=== PATIENT | female | born 1950 | race Caucasian/White ===

== ENCOUNTER 2023-03-29 07:35 | Outpatient (CLI) | payer OTHER | END 2023-03-29 08:11 | disposition home or self-care (01) | LOC: TOM 07:35 | PROVIDERS: ATTEND Surgery | DX: R19.4 Change in bowel habit (principal); R10.84 Generalized abdominal pain; R14.0 Abdominal distension (gaseous); R19.7 Diarrhea, unspecified; R19.5 Other fecal abnormalities; R10.32 Left lower quadrant pain; K57.32 Diverticulitis of large intestine without perforation or abscess without bleeding ==

== ENCOUNTER 2023-05-18 10:26 | Emergency (ER) | payer OTHER ==
[~2023-05-18] VITALS: Ht 165.1 cm; Wt 77.1 kg
[2023-05-18] MEDS ORDERED: COZAAR100 MG PO (10:40)
[2023-05-18] MEDS ORDERED: CRESTOR20 MG PO (10:40)
== END 2023-05-18 18:38 | disposition home or self-care (01) ==
LOC: ER 10:26
PROVIDERS: Emergency Medicine
DX: K57.30 Diverticulosis of large intestine without perforation or abscess without bleeding (principal); N28.1 Cyst of kidney, acquired; I10 Essential (primary) hypertension; Z88.0 Allergy status to penicillin; Z88.2 Allergy status to sulfonamides; Z88.8 Allergy status to other drugs, medicaments and biological substances; Z20.822 Contact with and (suspected) exposure to COVID-19

== ENCOUNTER 2024-05-26 09:00 | Inpatient (IN) | payer OTHER ==
[~2024-05-26] VITALS: Ht 157.5 cm; Wt 63.5 kg
[~2024-05-26 09:00] MED LIST: COZAAR100 MG PO; CRESTOR20 MG PO
[2024-05-26] MEDS ORDERED: AMBIEN10 MG PO (10:44)
[2024-05-26] MEDS ORDERED: CARDIZEM120 MG PO (10:44)
[2024-05-26] MEDS ORDERED: MAXIMUM D3325 MCG PO (10:45)
[2024-05-26] MEDS ORDERED: B12 ACTIVE1000 MCG PO (10:45)
[2024-05-26 10:47] VITALS: BP 140/80
[2024-05-26 10:56] LABS: URINE APPEARANCE Clear; URINE BILIRRUBIN Negative (NEGATIVE); URINE BLOOD Negative; URINE COLOR Yellow; URINE GLUCOSE Negative (NEGATIVE); URINE KETONE Trace (NEGATIVE); URINE LEUKOCYTE Negative; URINE NITRATE Negative; URINE PROTEIN Negative (NEGATIVE); URINE UROBILINOGEN 0.2 E.U./dl
[2024-05-26 10:57] LABS: URINE BACTERIA 27.7 uL (0.0-1933); URINE EPITHELIAL CELLS 3.7 uL (0.0-38.8); URINE WBC 3.5 uL (0.0-23.2)
[2024-05-26 11:38] LABS: HEMATOCRIT 43.5 % (36.0-45.00); HEMOGLOBIN 14.5 g/dL (12.0-15.00); MEAN CELL VOLUME 90.8 fL (80.00-100.00); MEAN CORPUSCULAR HEMOGLOBIN 30.3 pg (27.00-32.0); MEAN CORPUSCULAR HGB CONC 33.4 g/dl (32.0-36.0); PLATELET COUNT 206 K/uL (150-450); RED CELL DISTRIBUTION WIDTH 14.5 % (11.5-14.5)
[2024-05-26 11:56] LABS: INR 1.01; PARTIAL THROMBOPLASTIN TIME 27.5 SECONDS (22.0-34.0)
[2024-05-26 12:27] LABS: ALBUMIN 3.9 gm/dL (3.4-5.0); BILIRUBIN TOTAL 0.53 mg/dL (0.3-1.2); CALCIUM 9.7 mg/dL (8.5-10.1); CREATININE SERUM 0.82 mg/dL (0.55-1.02); GFR 67.78; GLOBULINA 3.4 G/DL (2.4-3.5); POTASSIUM 4.43 mEq/L (3.5-5.1); TOTAL PROTEIN 7.3 gm/dL (6.4-8.2)
[2024-06-01] MEDS ORDERED: BUPIVACAINE HCL 0.5% 50ML VIAL ONE (06:52)
[2024-06-01] MEDS ORDERED: LIDOCAINE HCL 1%/EPINEPHRINE 20ML VIAL IJ ONE (06:53)
[2024-06-01] MEDS ORDERED: CEFAZOLIN SODIUM 1,000 MG VIAL ONE (06:57)
[2024-06-01] MEDS ORDERED: TRANEXAMIC ACID 100MG/1ML (1000MG) AMPUL IV ONE (06:57)
[2024-06-01] MEDS ORDERED: VANCOMYCIN HCL 1,000 MG VIAL ONE (07:00)
[2024-06-01] MEDS ORDERED: KETOROLAC TROMETHAMINE 60 MG VIAL IM ONE (08:03)
[2024-06-01] MEDS ORDERED: MORPHINE SULFATE 4 MG/ML VIAL IV ONE ×2 (08:30→11:15)
[2024-06-01] MEDS ORDERED: SODIUM CHLORIDE 0.45 % 1,000 ML IV SCH (09:45)
[2024-06-01] MEDS ORDERED: ONDANSETRON HCL 2 MG/ML VIAL IV PRN (09:45)
[2024-06-01] MEDS ORDERED: MORPHINE SULFATE 4 MG/ML CARTRIDGE IV PRN (09:45)
[2024-06-01] MEDS ORDERED: MORPHINE SULFATE 2 MG/ML CARTRIDGE IV ONE (09:45)
[2024-06-01 11:10] LABS: HEMATOCRIT 40.5 % (36.0-45.00); HEMOGLOBIN 13.4 g/dL (12.0-15.00); RED BLOOD COUNT 4.46 M/uL (4.00-6.00)
[2024-06-01 12:10] VITALS: BP 164/75; O2SAT 90
[2024-06-01 17:57] VITALS: BP 138/71; O2SAT 100
[2024-06-01] MEDS ORDERED: VANCOMYCIN HCL 1,000 MG VIAL IV SCH (21:00)
[2024-06-02 00:36] VITALS: BP 126/71; O2SAT 99
[2024-06-02] MEDS ORDERED: OxyCODONE HCL/APAP UD (PERCOCET) PO PRN (07:00)
[2024-06-02 07:03] LABS: HEMOGLOBIN 11.8 g/dL (12.0-15.00); MEAN CELL VOLUME 90.4 fL (80.00-100.00); MEAN CORPUSCULAR HEMOGLOBIN 29.6 pg (27.00-32.0); MEAN CORPUSCULAR HGB CONC 32.7 g/dl (32.0-36.0); PLATELET COUNT 163 K/uL (150-450); RED BLOOD COUNT 3.98 M/uL (4.00-6.00); RED CELL DISTRIBUTION WIDTH 14.4 % (11.5-14.5)
[2024-06-02 08:13] VITALS: BP 161/81; O2SAT 96
[2024-06-02] MEDS ORDERED: LOSARTAN POTASSIUM 100 MG TABLET PO SCH (09:00)
[2024-06-02] MEDS ORDERED: BACITRACIN 28.35 GM OINT.TUBE TOP SCH (09:00)
[2024-06-02] MEDS ORDERED: IRON FUM,PS/FOLIC/BCOMP,C NO.9 1 CAP CAPSULE PO SCH (09:00)
[2024-06-02] MEDS ORDERED: DILTIAZEM HCL 120 MG TABLET PO SCH (09:00)
[2024-06-02] MEDS ORDERED: RIVAROXABAN 10 MG TAB PO SCH (09:00)
[2024-06-02] MEDS ORDERED: SENNA/DOCUSATE SODIUM 1 TAB TABLET PO SCH (09:00)
[2024-06-02] MEDS ORDERED: ACETAMINOPHEN 500 MG GEL..CAP PO PRN (09:00)
[2024-06-02 16:00] VITALS: BP 128/79; O2SAT 95
[2024-06-03 00:40] VITALS: BP 128/67; O2SAT 100
[2024-06-03 07:04] LABS: HEMATOCRIT 33.9 % (36.0-45.00); HEMOGLOBIN 11.6 g/dL (12.0-15.00); MEAN CELL VOLUME 87.8 fL (80.00-100.00); MEAN CORPUSCULAR HEMOGLOBIN 30.2 pg (27.00-32.0); MEAN CORPUSCULAR HGB CONC 34.3 g/dl (32.0-36.0); PLATELET COUNT 210 K/uL (150-450); RED BLOOD COUNT 3.86 M/uL (4.00-6.00); RED CELL DISTRIBUTION WIDTH 14.5 % (11.5-14.5)
[2024-06-03 08:03] VITALS: BP 150/78; O2SAT 95
[2024-06-03] MEDS ORDERED: OXYC1TAB9 PO (08:15)
[2024-06-03] MEDS ORDERED: XARELTO10 MG PO (08:15)
[2024-06-03] MEDS ORDERED: INTEGRA PLUS C1 EACH PO (08:15)
[2024-06-03] MEDS ORDERED: CIPRO500 MG PO (08:17)
== END 2024-06-03 14:10 | DRG 470 ==
LOC: SURG 06-01 05:24 → O/R 06-01 05:24 → SURH 06-01 09:00 → SURG 06-01 10:42 → SURH 06-01 17:30 → SURG 06-03 14:10
PROVIDERS: ADMIT Orthopaedic Surgery Sports Medicine; ATTEND Orthopaedic Surgery Sports Medicine
PROC: 0SRD0J9 Replacement of Left Knee Joint with Synthetic Substitute, Cemented, Open Approach (ICD-10-PCS; principal; 2024-06-01 17:30)
DX: M17.12 Unilateral primary osteoarthritis, left knee (principal); I10 Essential (primary) hypertension; Z88.1 Allergy status to other antibiotic agents; Z88.0 Allergy status to penicillin; Z88.2 Allergy status to sulfonamides

== ENCOUNTER 2024-06-09 09:26 | Emergency (ER) | payer OTHER ==
[~2024-06-09] VITALS: Ht 157.5 cm; Wt 63.5 kg
[~2024-06-09 09:26] MED LIST changes: +AMBIEN10 MG PO; +B12 ACTIVE1000 MCG PO; +CARDIZEM120 MG PO; +CIPRO500 MG PO; +INTEGRA PLUS C1 EACH PO; +MAXIMUM D3325 MCG PO; +OXYC1TAB9 PO; +XARELTO10 MG PO
[2024-06-09 10:29] LABS: URINE APPEARANCE Clear; URINE BILIRRUBIN Negative (NEGATIVE); URINE BLOOD Negative; URINE COLOR Yellow; URINE GLUCOSE Negative (NEGATIVE); URINE KETONE Negative (NEGATIVE); URINE LEUKOCYTE Negative; URINE NITRATE Negative; URINE PROTEIN Negative (NEGATIVE)
[2024-06-09 10:33] LABS: URINE EPITHELIAL CELLS 1.9 uL (0.0-38.8); URINE RBC 8.8 uL (0.0-20.8)
[2024-06-09 10:36] LABS: URINE BACTERIA 3.7 uL (0.0-1933); URINE WBC 1.2 uL (0.0-23.2)
[2024-06-09 10:43] LABS: HEMATOCRIT 32.7 % (36.0-45.00); HEMOGLOBIN 10.9 g/dL (12.0-15.00); MEAN CELL VOLUME 87.6 fL (80.00-100.00); MEAN CORPUSCULAR HEMOGLOBIN 29.2 pg (27.00-32.0); MEAN CORPUSCULAR HGB CONC 33.3 g/dl (32.0-36.0); PLATELET COUNT 392 K/uL (150-450); RED BLOOD COUNT 3.73 M/uL (4.00-6.00); RED CELL DISTRIBUTION WIDTH 14.8 % (11.5-14.5)
[2024-06-09 11:01] LABS: CREATININE SERUM 0.9 mg/dL (0.55-1.02); GFR 60.88; POTASSIUM 3.72 mEq/L (3.5-5.1)
[2024-06-09 11:10] LABS: INR 1.06; PARTIAL THROMBOPLASTIN TIME 29.8 SECONDS (22.0-34.0); PROTHROMBIN TIME 11.5 SECONDS (9.0-11.5)
== END 2024-06-09 14:18 | disposition home or self-care (01) ==
LOC: ER 09:26
PROVIDERS: Emergency Medicine
DX: R60.0 Localized edema (principal); Z96.652 Presence of left artificial knee joint; I10 Essential (primary) hypertension; Z88.0 Allergy status to penicillin; Z88.2 Allergy status to sulfonamides; Z88.8 Allergy status to other drugs, medicaments and biological substances